=== PATIENT | male | born 1995 ===

== ENCOUNTER 2020-12-07 08:32 | Emergency (ER) | payer SELFPAY ==
[~2020-12-07] VITALS: Ht 170.2 cm; Wt 72.7 kg
[2020-12-07 08:40] VITALS: TEMP 98.3
[2020-12-07 10:58] VITALS: BP 130/80; PULSE 80
== END 2020-12-07 10:55 | disposition home or self-care (01) ==
LOC: COL.ER 08:32
DX: S61.412A Laceration without foreign body of left hand, initial encounter (principal); W09.8XXA Fall on or from other playground equipment, initial encounter; Y93.44 Activity, trampolining